=== PATIENT | male | born 1950 | race Two or more races ===

== ENCOUNTER 2017-07-23 18:41 | Emergency (ER) | payer BC, MEDICARE ==
[~2017-07-23] VITALS: Ht 167.6 cm; Wt 80.0 kg
[2017-07-23 18:59] VITALS: BP 140/82; PULSE 95; RESP 18; TEMP 97.1; O2SAT 98
[2017-07-23 20:39] LABS: AUTOMATED NEUTROPHIL # 12.6 TH/MM3 (1.8-7.7); BASOPHIL # 0.1 TH/MM3 (0-0.2); BASOPHIL % 0.6 % (0.0-2.0); EOSINOPHIL # 0.1 TH/MM3 (0-0.4); EOSINOPHIL % 0.9 % (0.0-4.0); HEMATOCRIT 43.5 % (39.0-51.0); HEMO FLAGS AUTO DIFF; LYMPH % 11.2 % (9.0-44.0); LYMPHOCYTE # 1.7 TH/MM3 (1.0-4.8); MEAN CELL VOLUME 68.4 FL (80.0-100.0); MEAN CORPUSCULAR HGB CONC 29.2 % (32.0-36.0); NEUT % 81.3 % (16.0-70.0); PLATELET COUNT 219 TH/MM3 (150-450); RED BLOOD COUNT 6.36 MIL/MM3 (4.50-5.90); RED CELL DISTRIBUTION WIDTH 20.6 % (11.6-17.2); WHITE BLOOD COUNT 15.5 TH/MM3 (4.0-11.0)
[2017-07-23 21:07] LABS: OVALOCYTES 1+ (NORMAL)
[2017-07-23 21:08] LABS: PLATELET ESTIMATE SMEAR NORMAL (NORMAL); PLATELET MORPHOLOGY ENLARGED (NORMAL); SCAN/DIFF AUTO DIFF CONFIRMED
--- NOTE | 2017-07-23 22:07 | PD ---
HPI Chief Complaint: Psychiatric Symptoms Time Seen by Provider: 21:56 Travel History International Travel<30 days: No Contact w/Intl Traveler<30days: No Traveled to known affect area: No History of Present Illness HPI 66-year-old male was Lemon acted for aggressive behavior. Patient has history end-stage renal disease on dialysis. Patient was aggressive with the nurse at the dialysis center after he finished dialysis today. Patient states that the nurse was nasty to him at the dialysis Center. Patient denies any headache. Patient denies any chest pain or shortness of breath. Patient denies abdominal pain. Patient denies any focal weakness or numbness of extremity. Patient denies any coughing congestion fever chills. PFSH Past Medical History Cerebrovascular Accident: Yes Coronary Artery Disease: Yes Diminished Hearing: No Hypertension: Yes Myocardial Infarction: Yes Renal Failure: Yes (POLYCYCTIC KIDNEY DISEASE) Tetanus Vaccination: Unknown Influenza Vaccination: No Past Surgical History Other Surgery: Yes (AV FISTULA R ARM ) Social History Alcohol Use: No Tobacco Use: No Substance Use: No Allergies-Medications (Allergen,Severity, Reaction): Coded Allergies: No Known Allergies (Unverified Adverse Reaction, Unknown, 07/23/17) Reported Meds & Prescriptions Reported Meds & Active Scripts Active Active Prescriptions or Reported Medications Unobtainable Review of Systems General / Constitutional: No: Fever Eyes: No: Visual changes HENT: No: Headaches Cardiovascular: No: Chest Pain or Discomfort Respiratory: No: Shortness of Breath Gastrointestinal: No: Abdominal Pain Genitourinary: No: Dysuria Musculoskeletal: No: Pain Skin: No Rash Neurologic: No: Weakness Psychiatric: No: Depression Endocrine: No: Polydipsia Hematologic/Lymphatic: No: Easy Bruising Physical Exam Narrative GENERAL: Well-nourished, well-developed patient. SKIN: Focused skin assessment warm/dry. HEAD: Normocephalic. EYES: No scleral icterus. No injection or drainage. NECK: Supple, trachea midline. No JVD or lymphadenopathy. CARDIOVASCULAR: Regular rate and rhythm without murmurs, gallops, or rubs. RESPIRATORY: Breath sounds equal bilaterally. No accessory muscle use. GASTROINTESTINAL: Abdomen soft, non-tender, nondistended. MUSCULOSKELETAL: No cyanosis, or edema. BACK: Nontender without obvious deformity. No CVA tenderness. Neurologic exam: Patient's awake alert oriented 3. No obvious focal neurological deficit. Patient is calm and answer questions appropriately. No behavior problem in the ED. Data Data Last Documented VS Vital Signs Date Time Temp Pulse Resp B/P (MAP) Pulse Ox O2 Delivery O2 Flow Rate FiO2 07/23/17 18:59 97.1 95 18 140/82 (101) 98 Orders Orders Complete Blood Count With Diff (07/23/17 18:58) Comprehensive Metabolic Panel (07/23/17 18:58) Urinalysis - C+S If Indicated (07/23/17 18:58) Psych Screen (07/23/17 18:58) Drug Screen, Random Urine (07/23/17 18:58) Labs Laboratory Tests Test 07/23/17 20:05 White Blood Count 15.5 TH/MM3 Red Blood Count 6.36 MIL/MM3 Hemoglobin 12.7 GM/DL Hematocrit 43.5 % Mean Corpuscular Volume 68.4 FL Mean Corpuscular Hemoglobin 20.0 PG Mean Corpuscular Hemoglobin Concent 29.2 % Red Cell Distribution Width 20.6 % Platelet Count 219 TH/MM3 Mean Platelet Volume 9.3 FL Neutrophils (%) (Auto) 81.3 % Lymphocytes (%) (Auto) 11.2 % Monocytes (%) (Auto) 6.0 % Eosinophils (%) (Auto) 0.9 % Basophils (%) (Auto) 0.6 % Neutrophils # (Auto) 12.6 TH/MM3 Lymphocytes # (Auto) 1.7 TH/MM3 Monocytes # (Auto) 0.9 TH/MM3 Eosinophils # (Auto) 0.1 TH/MM3 Basophils # (Auto) 0.1 TH/MM3 CBC Comment AUTO DIFF Differential Comment AUTO DIFF CONFIRMED Platelet Estimate NORMAL Platelet Morphology Comment ENLARGED Ovalocytes 1+ MDM Medical Decision Making Medical Screen Exam Complete: Yes Emergency Medical Condition: Yes Differential Diagnosis Differential diagnosis including adjustment disorder, dementia. Narrative Course 66-year-old male is Lemon acted for aggressive behavior at dialysis Center this afternoon. Patient's not combative in the ED. Patient follow commands appropriately. Patient will be seen by psychiatrist screener. Lemon act will be lifted and patient will be discharged home. Diagnosis Primary Impression: Adjustment disorder with emotional disturbance Patient Instructions: General Instructions Additional Instructions: Follow-up with local physician. Med/Other Pt SpecificInfo: No Change to Meds Scripts Unable to Obtain Active Prescriptions or Reported Meds Disposition: 01 DISCHARGE HOME Condition: Stable Nish Coffey MD Jul 23, 2017 22:07
[2017-07-23 22:13] LABS: BLOOD, URINE NEG (NEG); COMMENT (UR) CULT NOT INDICATED; CULTURE IF INDICATED CULT NOT INDICATED; GLUCOSE,URINE TRACE mg/dL (NEG); KETONE, URINE NEG (NEG); NITRITE,URINE NEG (NEG); PH, URINE 8.5 (5.0-8.5); URINE COLOR YELLOW (YELLW/STRAW)
== END 2017-07-24 00:45 | disposition home or self-care (01) ==
LOC: NEDAMB 18:41 → NEPC 07-24 00:45
DX: F43.25 Adjustment disorder with mixed disturbance of emotions and conduct (principal); I12.0 Hypertensive chronic kidney disease with stage 5 chronic kidney disease or end stage renal disease; N18.6 End stage renal disease; I25.10 Atherosclerotic heart disease of native coronary artery without angina pectoris; I25.2 Old myocardial infarction; Q61.3 Polycystic kidney, unspecified; Z99.2 Dependence on renal dialysis; Z86.73 Personal history of transient ischemic attack (TIA), and cerebral infarction without residual deficits
CPT/HCPCS: 80053; 80307; 81001; 85025; 99283